=== PATIENT | male | born 1995 | race Caucasian/White ===

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

== ENCOUNTER → 2017-11-10 | Outpatient (CLI) | payer OTHER ==
--- NOTE | 2017-11-10 12:22 | Diagnostic Imaging Report ---
EXAMINATION: Magnetic resonance imaging of the right knee without intravenous contrast DATE: November 10, 2017. COMPARISON: None. INDICATION: 22-year-old male, injury weight lifting. Right knee pain. TECHNIQUE: Multiplanar, multisequence non contrast enhanced MR imaging was accomplished. FINDINGS: There is low [id number] ratio on this exam. MENISCI: There is increased signal near the meniscocapsular junction at the level of the posterior horn of the medial meniscus likely relating to meniscal tear at this location. There is a vertically oriented tear involving the posterior horn of the lateral meniscus. LIGAMENTS AND TENDONS: There is a complete tear of the anterior cruciate ligament. The posterior cruciate ligament is intact. The medial collateral ligament is intact. The iliotibial band, mid third lateral capsular ligament, fibular collateral ligament, biceps femoris tendon and conjoined tendon are intact. The quadriceps tendon and patella ligament are intact. JOINT: The articular cartilage surfaces are intact. There is a trace knee joint effusion without intra-articular body or prominent synovitis. BONE: There is unremarkable bone marrow signal. Specifically, negative for fracture, osteomyelitis, osteonecrosis, or marrow replacing process. BURSAE AND SOFT TISSUES: There is prominent posterior soft tissue edema as well as generalized soft tissue edema adjacent to the knee joint capsule. IMPRESSION: 1. Complete tear of the anterior cruciate ligament. Intact posterior cruciate ligament. 2. Tear of the posterior horn of the medial meniscus at the meniscocapsular junction. Vertically-oriented tear of the posterior horn of the lateral meniscus. 3. Intact articular cartilage. Trace knee joint effusion without intra-articular body or prominent synovitis. 4. No acute fracture or bone contusion. 5. Prominent nonspecific soft tissue edema posteriorly as well as subjacent to the knee joint capsule. Dictated by: Dictated on workstation # [id number]
== END ==
LOC: RAD 11:02
PROVIDERS: ATTEND Orthopaedic Surgery
DX: S83.511A Sprain of anterior cruciate ligament of right knee, initial encounter (principal); S83.241A Other tear of medial meniscus, current injury, right knee, initial encounter; S83.281A Other tear of lateral meniscus, current injury, right knee, initial encounter; X50.0XXA Overexertion from strenuous movement or load, initial encounter
CPT/HCPCS: 73721